=== PATIENT | female | born 1995 | race Caucasian/White ===

== ENCOUNTER 2018-01-20 13:36 | Outpatient (CLI) | payer OTHER ==
[2018-01-20] VITALS (19 sets, daily range): BP systolic 123–197; BP diastolic 60–111
[~2018-01-20 13:36] MED LIST: AUGMENTIN875 MG PO; CEFUROXIME500 MG PO; DECADRON4 MG PO; PHENTERMINE H37.5 MG PO; TRI-SPRINTEC1 EACH PO
[2018-01-20 14:33] LABS: BASOPHIL (%) 0.2 % (0-1); EOSINOPHIL (%) 0.7 % (0-5); EOSINOPHIL COUNT 0.1 K/uL (0-0.3); HEMATOCRIT 33.7 % (36.0-46.0); HEMOGLOBIN 11.6 G/DL (11.9-15.5); IMMATURE GRANULOCYTE (%) 0.5 % (0.0-0.7); LYMPHOCYTE (%) 30.7 % (15-42); LYMPHOCYTE COUNT 3.1 K/uL (1.0-2.8); MCH 29.1 PG (29.0-34.0); MCHC 34.4 G/DL (30.0-36.0); MCV 84.7 FL (83-99); MONOCYTE (%) 7.2 % (3-12); MONOCYTE COUNT 0.7 K/uL (0-0.8); NEUTROPHIL (%) 60.7 % (45-76); NEUTROPHIL COUNT 6.2 K/uL (1.8-6.4); PLATELET COUNT 235 K/uL (156-360); RBC DIS.WIDTH-CV 12.9 % (11.8-14.6); RBC DIS.WIDTH-SD 39.8 % (39-53); RED BLOOD COUNT 3.98 M/uL (3.80-5.20); WHITE BLOOD COUNT 10.2 K/uL (4.1-10.2)
[2018-01-20 14:43] LABS: ALBUMIN 3.4 g/dL (3.2-4.8)
[2018-01-20 14:44] LABS: CHLORIDE 108 mEq/L (99-109); POTASSIUM 3.7 mEq/L (3.7-5.4); SODIUM 138 mEq/L (136-147)
[2018-01-20 14:46] LABS: GLUCOSE 77 mg/dL (70-99); TOTAL PROTEIN 6.3 g/dL (6.4-8.3)
[2018-01-20 14:48] LABS: TOTAL BILIRUBIN 0.4 mg/dL (0.0-1.0)
[2018-01-20 14:49] LABS: ALKALINE PHOSPHATASE 109 IU/L (3-129)
[2018-01-20 14:50] LABS: CREATININE 0.5 mg/dL (0.6-1.3); GFR ESTIMATE (CALCULATED) > 59 mL/min/
[2018-01-20 14:51] LABS: AST (GOT) 16 IU/L (2-34); UREA NITROGEN (BUN) 7 mg/dL (9-23)
[2018-01-20 14:52] LABS: ALT (GPT) 11 IU/L (3-49)
[2018-01-20 14:53] LABS: URIC ACID 4.9 mg/dL (3.1-9.2)
[2018-01-20 15:31] LABS: AMPHETAMINE NEGATIVE (500 ng/mL); BENZODIAZEPINES NEGATIVE (150 ng/mL); COCAINE NEGATIVE (150 ng/mL); METHADONE NEGATIVE (200 ng/mL); METHAMPHETAMINE NEGATIVE (500 ng/mL); OPIATES (MORPHINE) NEGATIVE (100 ng/mL); PHENCYCLIDINE NEGATIVE (25 ng/mL); THC CANNABINOIDS NEGATIVE (50 ng/mL); TRICYCLIC ANTIDEPRESSANTS NEGATIVE (300 ng/mL)
[2018-01-20 15:32] LABS: BARBITURATES NEGATIVE (200 ng/mL); BUPRENORPHINE NEGATIVE (10 ng/mL); OXYCODONE NEGATIVE (100 ng/mL); PROPOXYPHENE NEGATIVE (300 ng/mL)
[2018-01-20 15:42] LABS: UR CREATININE CONCENTRATION 43.8 MG/DL
[2018-01-20 15:49] LABS: LACTATE DEHYDROGENASE 238 IU/L (20-246)
[2018-01-20 23:36] LABS: APPEARANCE CLEAR ((CLEAR)); BILIRUBIN NEGATIVE; BLOOD NEGATIVE; COLOR YELLOW ((YELLOW)); GLUCOSE (STRIP) NEGATIVE; KETONES NEGATIVE; LEUKOCYTES NEGATIVE; NITRITE NEGATIVE; PROTEIN (STRIP) 100; SPECIFIC GRAVITY 1.016 (1.000-1.030); UROBILINOGEN 0.2 MG/DL (0.2-1.0)
[2018-01-20 23:40] LABS: BACTERIA RARE /HPF; EPITHELIAL CELLS RARE /HPF; MUCUS TRACE /LPF; RED BLOOD CELLS 0-5 /HPF (0-5); UCUL ADDED? NO; WHITE BLOOD CELLS 0-5 /HPF (0-5)
[2018-01-21 02:57] VITALS: BP 136/64
[2018-01-21 07:23] VITALS: BP 142/89
[2018-01-21] MEDS ORDERED: LABETALOL HCL100 MG PO (07:25)
[2018-01-21 13:19] LABS: 24 HR VOLUME 600 MLS
== END 2018-01-21 09:45 | disposition home or self-care (01) ==
LOC: LDRP-OP 13:36 → 2WEST 13:37
PROVIDERS: Advanced Practice Midwife; Obstetrics & Gynecology Obstetrics
DX: O14.92 Unspecified pre-eclampsia, second trimester (principal); O99.282 Endocrine, nutritional and metabolic diseases complicating pregnancy, second trimester; E28.2 Polycystic ovarian syndrome; E55.9 Vitamin D deficiency, unspecified; Z82.49 Family history of ischemic heart disease and other diseases of the circulatory system; Z80.3 Family history of malignant neoplasm of breast; Z83.49 Family history of other endocrine, nutritional and metabolic diseases; Z82.5 Family history of asthma and other chronic lower respiratory diseases; Z3A.26 26 weeks gestation of pregnancy
CPT/HCPCS: 59025; 80053; 81003; 81050; 82570; 83615; 84156; 84550; 85025; 85384; G0378; J7120

== ENCOUNTER 2018-01-23 02:39 | Outpatient (CLI) | payer OTHER ==
[~2018-01-23] VITALS: Ht 170.2 cm; Wt 120.4 kg
[2018-01-23] VITALS (12 sets, daily range): BP systolic 144–175; BP diastolic 75–89
[~2018-01-23 02:39] MED LIST changes: +LABETALOL HCL100 MG PO
[2018-01-23 02:59] LABS: HEMATOCRIT 34.4 % (36.0-46.0); HEMOGLOBIN 11.9 G/DL (11.9-15.5); MCH 29.5 PG (29.0-34.0); MCHC 34.6 G/DL (30.0-36.0); MCV 85.4 FL (83-99); PLATELET COUNT 219 K/uL (156-360); RBC DIS.WIDTH-CV 13.2 % (11.8-14.6); RBC DIS.WIDTH-SD 39.7 % (39-53); RED BLOOD COUNT 4.03 M/uL (3.80-5.20); WHITE BLOOD COUNT 11.3 K/uL (4.1-10.2)
[2018-01-23 03:14] LABS: CHLORIDE 111 mEq/L (99-109); POTASSIUM 3.8 mEq/L (3.7-5.4); SODIUM 142 mEq/L (136-147)
[2018-01-23 03:16] LABS: GLUCOSE 73 mg/dL (70-99)
[2018-01-23 03:20] LABS: CREATININE 0.6 mg/dL (0.6-1.3); GFR ESTIMATE (CALCULATED) > 59 mL/min/; UREA NITROGEN (BUN) 6 mg/dL (9-23)
[2018-01-23 03:22] LABS: TROP-I INTERPRETATION NEGATIVE; TROPONIN-I < 0.01 ng/mL (0.0-0.30)
[2018-01-23 03:52] LABS: APPEARANCE SL.HAZY ((CLEAR)); BILIRUBIN NEGATIVE; BLOOD NEGATIVE; COLOR YELLOW ((YELLOW)); GLUCOSE (STRIP) NEGATIVE; KETONES NEGATIVE; LEUKOCYTES NEGATIVE; NITRITE NEGATIVE; PROTEIN (STRIP) >=500; SPECIFIC GRAVITY 1.011 (1.000-1.030); UROBILINOGEN 0.2 MG/DL (0.2-1.0)
[2018-01-23 03:54] LABS: ALBUMIN 3.3 g/dL (3.2-4.8)
[2018-01-23 03:55] LABS: MAGNESIUM 1.8 mg/dL (1.3-2.7)
[2018-01-23 03:57] LABS: TOTAL PROTEIN 5.6 g/dL (6.4-8.3)
[2018-01-23 03:59] LABS: TOTAL BILIRUBIN 0.4 mg/dL (0.0-1.0)
[2018-01-23 04:00] LABS: ALKALINE PHOSPHATASE 110 IU/L (3-129)
[2018-01-23 04:01] LABS: BACTERIA RARE /HPF; EPITHELIAL CELLS 2+ /HPF; MUCUS TRACE /LPF; RED BLOOD CELLS 0-5 /HPF (0-5); UCUL ADDED? NO; WHITE BLOOD CELLS 0-5 /HPF (0-5)
[2018-01-23 04:02] LABS: AST (GOT) 16 IU/L (2-34)
[2018-01-23 04:03] LABS: ALT (GPT) 12 IU/L (3-49); DIRECT BILIRUBIN 0.1 mg/dL (0.0-0.3)
[2018-01-23 04:04] LABS: LIPASE 21 U/L (1.0-51.0)
[2018-01-23] MEDS ORDERED: PRENATAL TABLE1 EAC3 PO (07:16)
[2018-01-23] MEDS ORDERED: ACETAMINOPHEN325 M1 PO (07:19)
== END 2018-01-23 11:58 | disposition designated cancer center or children's hospital, planned readmission (85) ==
LOC: EME 02:39 → LDRP-OP 02:39 → 2WEST 07:27 → EDSTATUS 07:30 → 2WEST 11:58
PROVIDERS: Physician Assistant
DX: O14.92 Unspecified pre-eclampsia, second trimester (principal); Z3A.26 26 weeks gestation of pregnancy; R00.0 Tachycardia, unspecified; O99.212 Obesity complicating pregnancy, second trimester; O99.512 Diseases of the respiratory system complicating pregnancy, second trimester; J90 Pleural effusion, not elsewhere classified; Z87.891 Personal history of nicotine dependence
CPT/HCPCS: 59025; 71275; 80048; 80076; 81003; 83690; 83735; 84484; 85027; 87086; 93005; 99281; 99284; G0378; J0360; J0702; J2405; J2765; J3475; J7030